=== PATIENT | female | born 1965 | race Two or more races ===

== ENCOUNTER 2025-02-03 11:26 | Emergency (ER) | payer OTHER ==
[2025-02-03 11:37] VITALS: BP 113/69; PULSE 68; RESP 20; TEMP 98; BMI 28.8
[2025-02-03] MEDS ORDERED: ACETAMINOPHEN 500 MG TABLET (FP) ONE (13:28)
[2025-02-03] MEDS: ACETAMINOPHEN 500 MG TABLET (FP) PO ONE (13:30)
== END 2025-02-03 13:51 | disposition home or self-care (01) ==
LOC: JER 11:26
DX: I83.813 Varicose veins of bilateral lower extremities with pain (principal)
CPT/HCPCS: 93970-TC; 99284-25